=== PATIENT | male | born 1930 | race Caucasian/White ===

== ENCOUNTER 2019-01-06 11:40 | Inpatient (IN) | payer MEDICARE, BC ==
[~2019-01-06] VITALS: Ht 182.9 cm; Wt 103.0 kg
--- NOTE | 2019-01-06 11:45 | NUR ---
EKG FAXED TO [facility].
--- NOTE | 2019-01-06 11:48 | NUR ---
ekg showed some st elevation,copy of result sent to syrup maker,not calling it stemi at this time per dr. noel.
--- NOTE | 2019-01-06 11:52 | NUR ---
patient to ct.
[2019-01-06 12:03] LABS: BASOPHILS # (AUTO) 0.1 X10'3 (0-0.2); BASOPHILS % (AUTO) 0.8 % (0-1); EOSINOPHILS # (AUTO) 0.4 X10'3 (0-0.9); EOSINOPHILS % (AUTO) 4.4 % (0-6); LYMPHOCYTES % (AUTO) 31.5 % (21-51); MEAN CORPUSCULAR HEMOGLOBIN 30.6 PG (27.0-31.0); MEAN CORPUSCULAR HGB CONC 33.2 g/dL (33.0-36.5); MEAN PLATELET VOLUME 9.7 FL (7.4-10.4); MONOCYTES # (AUTO) 0.5 X10'3 (0-0.9); MONOCYTES % (AUTO) 5.8 % (2-12); NEUTROPHILS # (AUTO) 5.5 X10'3 (1.8-7.7); NEUTROPHILS % (AUTO) 57.5 % (42-75); PLATELET COUNT 259 X10'3 (140-440); RED BLOOD COUNT 4.57 X10'6 (4.70-6.10); RED CELL DISTRIBUTION WIDTH 13.7 % (11.5-14.5); WHITE BLOOD COUNT 9.5 X10'3 (4.5-11.0)
--- NOTE | 2019-01-06 12:04 | NUR ---
Dr. Da Silva and Dr. Parra at bedside.
--- NOTE | 2019-01-06 12:05 | NUR ---
stroke Yumiko FERNANDEZ at bedside.
[2019-01-06] MEDS ORDERED: normal saline 1000ml 1,000 ML IV STA (12:07)
--- NOTE | 2019-01-06 12:07 | NUR ---
Dr. Da Silva not convinced to be a stemi.
--- NOTE | 2019-01-06 12:07 | NUR ---
bp 90/45 NS 1L Bolus per bert.
[2019-01-06 12:18] LABS: ALANINE AMINOTRANSFERASE 25 U/L (12-78); ALBUMIN 3.6 G/DL (3.4-5.0); ALBUMIN/GLOBULIN RATIO 1.2 (1.1-1.5); ALKALINE PHOSPHATASE 39 IU/L (46-116); ANION GAP 7 (8-16); ASPARTATE AMINO TRANSFERASE 11 U/L (10-37); BILIRUBIN,TOTAL 0.4 MG/DL (0.1-1.0); BLOOD UREA NITROGEN 17 MG/DL (7-18); BUN/CREATININE RATIO 13.1 (5.4-32.0); CALCIUM 8.5 MG/DL (8.5-10.1); CHLORIDE 112 MMOL/L (99-107); GLUCOSE 206 MG/DL (70-104); PARTIAL THROMBOPLASTIN TIME 25 SECONDS (22-32); POTASSIUM 4.7 MMOL/L (3.5-5.1); SODIUM 143 MMOL/L (135-145); TOTAL CARBON DIOXIDE 24.2 MMOL/L (24-32); TOTAL PROTEIN 6.6 G/DL (6.4-8.2); eGFR 52 ML/MIN
[2019-01-06 12:21] LABS: TROPONIN I < 0.04 NG/ML (0.0-0.05)
--- NOTE | 2019-01-06 12:30 | NUR ---
Pt HR low 50s but occasionally drops to low 30s. Spoke with Aida HATCH, defib pads placed and administer 0.5 mg Atropine if symptomatic. Pt does not c/o of SOB, nausea, dizziness or confusion at this time.
--- NOTE | 2019-01-06 13:00 | NUR ---
Pt blood pressure increased to >100 systolic and MAP >65 after 1L NS bolus
[2019-01-06] MEDS ORDERED: AMLO5TAB PO (13:05)
[2019-01-06] MEDS ORDERED: FENO145T36 PO (13:05)
[2019-01-06] MEDS ORDERED: NAPR-1154 PO (13:05)
[2019-01-06] MEDS ORDERED: LOSA50TA3 PO (13:05)
[2019-01-06] MEDS ORDERED: ENAL20TA PO (13:05)
[2019-01-06] MEDS ORDERED: PRAV20TA4 PO (13:05)
[2019-01-06] MEDS ORDERED: ASPI-1053 PO (13:08)
[2019-01-06] MEDS ORDERED: VIT1CAPS9 PO (13:08)
[2019-01-06] MEDS ORDERED: GLUC100017 PO (13:11)
[2019-01-06] MEDS ORDERED: OMEG1CAP2 PO (13:11)
[2019-01-06] MEDS ORDERED: CHOL200052 PO (13:16)
[2019-01-06] MEDS ORDERED: acetaminophen 325mg tablet PO ONE (14:05)
[2019-01-06] MEDS ORDERED: morphine 2 MG/ML inj. syringe IV PRN ×2 (14:30)
[2019-01-06] MEDS ORDERED: mag hydrox/Alum hydrox/simeth 30ml oral suspension PO PRN (14:30)
[2019-01-06] MEDS ORDERED: HYDROcodone/acetaminophen 5mg/325mg tablet PO PRN (14:30)
[2019-01-06] MEDS ORDERED: magnesium hydroxide 30ml (MOM) UD suspension PO PRN (14:30)
[2019-01-06] MEDS ORDERED: acetaminophen 325mg tablet PO PRN (14:30)
[2019-01-06] MEDS ORDERED: ondansetron/PF 4mg/2ml inj IV PRN (14:30)
--- NOTE | 2019-01-06 14:30 | NUR ---
Patient in room PCU 3017. I have received report from REBECCA Woo and had the opportunity to ask questions and assume patient care.
[2019-01-06] MEDS: normal saline 1000ml 1,000 ML IV SCH (14:57)
[2019-01-06 15:00] VITALS: BP 99/42
--- NOTE | 2019-01-06 15:00 | NUR ---
Patient arrived to PCU, in stable condition. Vitals within normal limits. Patient oriented to room and call light.
[2019-01-06 18:00] VITALS: BP 140/68
--- NOTE | 2019-01-06 18:00 | NUR ---
Patient in room PCU 3017. I have received report from Sarika FERNANDEZ and Jessika FERNANDEZ and had the opportunity to ask questions and assume patient care.
--- NOTE | 2019-01-06 18:17 | NUR ---
Patient report given, questions answered & plan of care reviewed with Marybeth.
--- NOTE | 2019-01-06 18:37 | NUR ---
[place] documentation: I have reviewed and agree with all interventions, assessments performed and documented by Jessika FERNANDEZ. [place] Medication Administration: For this medication-pass time frame, all medication were reviewed, dispensed, administered and documented per hospital policy by Jessika FERNANDEZ.
--- NOTE | 2019-01-06 18:49 | NUR ---
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 Unable to reach Dr. Russell, called Dr. Hanley stated he didnt start untill 7pm. Will continue to monitor and call back later.
[2019-01-06] MEDS: naproxen 500mg tablet PO SCH (21:05)
[2019-01-06 22:00] VITALS: BP 112/57
[2019-01-06 23:49] LABS: UA COLLECTION TYPE NON-SPECIFIED
[2019-01-06 23:50] LABS: CLARITY,URINE CLEAR (Clear); COLOR,URINE YELLOW (Yellow); GLUCOSE, URINE NEGATIVE (Neg); KETONES,URINE NEGATIVE (Neg); LEUKOCYTE ESTERASE ,URINE SMALL (Neg); NITRITES, URINE NEGATIVE (Neg); OCCULT BLOOD,URINE NEGATIVE (Neg); PROTEIN,URINE NEGATIVE (Neg); UROBILINOGEN,URINE 0.2 E.U/dL (0.2-1.0)
[2019-01-06 23:59] LABS: BACTERIA,URINE NONE SEEN /HPF (Neg); MUCUS STRANDS FEW /LPF (Neg); SQUAMOUS EPITHELIAL CELL,UR MANY /LPF (FEW)
[2019-01-07] LABS: WBC,URINE 20-30 /HPF (0-4)
[2019-01-07] MEDS: normal saline 1000ml 1,000 ML IV SCH ×2 (01:58→10:27)
[2019-01-07 02:00] VITALS: BP 120/76
--- NOTE | 2019-01-07 05:00 | NUR ---
Patient was able to sleep all night long. In good spirits this morning watching TV.
[2019-01-07 06:00] VITALS: BP 136/67
--- NOTE | 2019-01-07 06:11 | NUR ---
Patient in room PCU 3017. I have received report from REBECCA Rueda and had the opportunity to ask questions and assume patient care.
--- NOTE | 2019-01-07 06:47 | NUR ---
Problems reprioritized. Patient report given, questions answered & plan of care reviewed with Johny FERNANDEZ.
[2019-01-07 07:11] LABS: BASOPHILS # (AUTO) 0.1 X10'3 (0-0.2); BASOPHILS % (AUTO) 0.9 % (0-1); EOSINOPHILS # (AUTO) 0.4 X10'3 (0-0.9); EOSINOPHILS % (AUTO) 5.6 % (0-6); HEMATOCRIT 39.1 % (42.0-52.0); HEMOGLOBIN 13.1 g/dl (14.0-17.9); LYMPHOCYTES % (AUTO) 27.1 % (21-51); MEAN CORPUSCULAR HGB CONC 33.6 g/dL (33.0-36.5); MEAN CORPUSCULAR VOLUME 92.2 FL (78-98); MEAN PLATELET VOLUME 9.7 FL (7.4-10.4); MONOCYTES # (AUTO) 0.5 X10'3 (0-0.9); MONOCYTES % (AUTO) 7.1 % (2-12); NEUTROPHILS # (AUTO) 4.4 X10'3 (1.8-7.7); NEUTROPHILS % (AUTO) 59.3 % (42-75); PLATELET COUNT 246 X10'3 (140-440); RED BLOOD COUNT 4.24 X10'6 (4.70-6.10); RED CELL DISTRIBUTION WIDTH 13.7 % (11.5-14.5); WHITE BLOOD COUNT 7.5 X10'3 (4.5-11.0)
[2019-01-07 07:53] LABS: ALBUMIN 3.2 G/DL (3.4-5.0); ANION GAP 8 (8-16); BLOOD UREA NITROGEN 17 MG/DL (7-18); BUN/CREATININE RATIO 14.3 (5.4-32.0); CALCIUM 8.4 MG/DL (8.5-10.1); CHLORIDE 112 MMOL/L (99-107); CREATININE 1.19 MG/DL (0.60-1.10); GLUCOSE 97 MG/DL (70-104); POTASSIUM 4.9 MMOL/L (3.5-5.1); SODIUM 145 MMOL/L (135-145); TOTAL CARBON DIOXIDE 25.2 MMOL/L (24-32); eGFR 58 ML/MIN
[2019-01-07] MEDS ORDERED: vitamin D (cholecalciferol) 1,000 unit tablet PO SCH (08:00)
[2019-01-07] MEDS ORDERED: pravastatin 40mg tablet PO SCH (08:00)
[2019-01-07] MEDS ORDERED: non-formulary drug (Omega-3 Fatty Acids/Fish Oil (Fish Oil 1,000 mg Capsule) 1 CAP) PO SCH (08:00)
[2019-01-07] MEDS ORDERED: CHOLECALCIFEROL PO SCH (08:00)
[2019-01-07] MEDS ORDERED: VIT A PO SCH (08:00)
[2019-01-07] MEDS ORDERED: PRAVASTATIN SODIUM PO SCH (08:00)
[2019-01-07] MEDS ORDERED: omega-3 acid ethyl esters 1GM capsule PO SCH (08:00)
[2019-01-07] MEDS ORDERED: aspirin 81mg tab.chew PO SCH (08:00)
[2019-01-07] MEDS ORDERED: fenofibrate 145mg tablet PO SCH (08:00)
[2019-01-07] MEDS ORDERED: VIT E PO SCH (08:00)
[2019-01-07] MEDS ORDERED: beta-carotene(A) w/C & E + minerals tab PO SCH (08:00)
[2019-01-07] MEDS ORDERED: COPPER PO SCH (08:00)
[2019-01-07] MEDS ORDERED: ZINC PO SCH (08:00)
[2019-01-07] MEDS ORDERED: VIT C PO SCH (08:00)
[2019-01-07] MEDS ORDERED: GLUCOSAMINE SULFATE PO SCH (08:00)
[2019-01-07] MEDS: naproxen 500mg tablet PO SCH (08:26)
[2019-01-07] MEDS ORDERED: CefTRIAXone/D5W-Rocephin 1gm 50 ML IV SCH (09:55)
[2019-01-07 11:00] VITALS: BP 140/58
[2019-01-07] MEDS ORDERED: SULF1TAB49 PO (12:26)
--- NOTE | 2019-01-07 13:30 | NUR ---
Discharged. IV and tele taken off. Educated on bradycardia, meds and to hold BP meds. Told to follow-up with his provider ABHISHEK. Meds called into [facility] in [place] in [place]. Stable for DC per .
== END 2019-01-07 13:30 | disposition home or self-care (01) | DRG 683 ==
LOC: ER 11:41 → PCU 3S 15:25
PROVIDERS: ADMIT Internal Medicine; ATTEND Internal Medicine
DX: N17.9 Acute kidney failure, unspecified (principal); N39.0 Urinary tract infection, site not specified; I95.9 Hypotension, unspecified; E78.00 Pure hypercholesterolemia, unspecified; Z96.659 Presence of unspecified artificial knee joint; E86.0 Dehydration; R00.1 Bradycardia, unspecified; E78.5 Hyperlipidemia, unspecified; I10 Essential (primary) hypertension; Z79.82 Long term (current) use of aspirin; Z79.899 Other long term (current) drug therapy; Z87.891 Personal history of nicotine dependence
CPT/HCPCS: 36415; 70450; 71045; 80048; 80053; 81001; 82948; 83605; 83880; 84145; 84443; 84484; 85025; 85610; 85730; 87081; 87088; 93005; 93306; 96360; 99291; G0378; J0696; J7030